=== PATIENT | male | born 1955 | race Caucasian/White ===

== ENCOUNTER 2024-08-08 06:46 | Day surgery (SDC) | payer OTHER, BC ==
[2024-08-07 09:34] VITALS: BMI 28.8
[2024-08-08] MEDS ORDERED: CEFAZOLIN SODIUM 2 GM in DEXTROSE 5%-WATER 100 ML IVPB ONE (08:42)
[2024-08-08] MEDS ORDERED: ACETAMINOPHEN 500 MG TABLET (FP) PO PRN (08:43)
[2024-08-08 11:40] VITALS: RESP 18
[2024-08-08] MEDS ORDERED: ceFAZolin SODIUM 1 GM VIAL ONE (13:20)
[2024-08-08] MEDS: ceFAZolin SODIUM 1 GM VIAL IVPB ONE (13:20)
[2024-08-08] MEDS: LIDOCAINE HCL 1% PRESERVATIVE FREE - 30ML VIAL IJ ONE (13:54)
[2024-08-08] MEDS: LIDOCAINE HCL/PF 2% SDV 5ML VIAL INF ONE ×2 (13:56)
[2024-08-08 15:47] VITALS: BP 133/80; PULSE 50; TEMP 97.9
== END 2024-08-08 15:41 | disposition home or self-care (01) ==
LOC: JASU-SURG 06:46
PROVIDERS: ATTEND Pain Medicine Pain Medicine
PROC: 01HY3MZ Insertion of Neurostimulator Lead into Peripheral Nerve, Percutaneous Approach (ICD-10-PCS; principal; 2024-08-08 13:00)
DX: G89.4 Chronic pain syndrome (principal); G62.9 Polyneuropathy, unspecified
CPT/HCPCS: 63650; C1778; 76000-TC-FY; C1897